=== PATIENT | male | born 1950 | race Caucasian/White ===

== ENCOUNTER → 2022-04-25 | Outpatient (CLI) | payer MEDICARE, OTHER, SELFPAY ==
--- NOTE | 2022-04-25 07:41 | CT_ITS ---
HISTORY: Sinusitis. TECHNIQUE: Helically acquired images were obtained of the paranasal sinuses. A radiation dose optimization technique was used for this scan. IV Contrast dosage and agent: None. 741 images. COMPARISON: None. FINDINGS: FRONTAL SINUSES: Clear. ETHMOID AIR CELLS: Mild mucosal thickening. MAXILLARY SINUSES: Clear. OSTIOMEATAL COMPLEXES: Patent. SPHENOID SINUSES: Minimal mucosal thickening. NASAL CAVITY: Clear. NASAL SEPTUM: Rightward deviation without obstructing spur. ORBITS: Bilateral lens resections. 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 Clear mastoid air cells. CT/Sinus/Facial Bone IMPRESSION: Very mild paranasal sinus mucosal thickening. Electronically Signed: July Martinez MD at 8:12 EST ,
== END | disposition home or self-care (01) ==
PROVIDERS: Visit Provider Otolaryngology Otolaryngology/Facial Plastic Surgery
DX: J31.0 Chronic rhinitis (principal)
CPT/HCPCS: 70486